=== PATIENT | male | born 1945 | race Caucasian/White ===

== ENCOUNTER 2017-02-03 09:10 | Outpatient (CLI) | payer MEDICARE, BC ==
[2017-02-03 09:40] LABS: ALT (SGPT) 26 U/L (8-55); AST (SGOT) 20 U/L (5-34); Albumin 4.3 g/dL (3.4-4.8); Alkaline Phosphatase 84 U/L (40-150); Anion Gap 12 mmol/L (10-20); BUN (Urea Nitrogen) 21 mg/dL (8.4-25.7); Bilirubin, Total 0.9 mg/dL (0.2-1.2); Calc. Creatinine Clearance 0 mL/min (70-130); Calcium 9.4 mg/dL (7.8-10.44); Carbon Dioxide 26 mmol/L (23-31); Cardiac Risk 2.2 (Less than 4.5); Chloride 108 mmol/L (98-107); Cholesterol 114 mg/dl (< 200 Desired); Estimated GFR-MDRD 88; Globulin 2.4 g/dL (2.4-3.5); Glucose 98 mg/dL (83-110); HDL Cholesterol 52 mg/dL (>60 Neg Risk); LDL Cholesterol, Calculated 53 mg/dL; Potassium 3.8 mmol/L (3.5-5.1); Protein, Total 6.7 g/dL (5.8-8.1); Sodium 142 mmol/L (136-145); Triglycerides 47 mg/dL (Less than 150)
== END 2017-02-03 09:11 | disposition home or self-care (01) ==
LOC: BURLAB 09:10
PROVIDERS: ATTEND Internal Medicine Cardiovascular Disease
DX: E78.00 Pure hypercholesterolemia, unspecified (principal); I25.10 Atherosclerotic heart disease of native coronary artery without angina pectoris
CPT/HCPCS: 36415; 80053; 80061

== ENCOUNTER 2019-02-14 09:16 | Emergency (ER) | payer MEDICARE, BC ==
[~2019-02-14 09:16] MED LIST: Iopamidol 370 76% 100 ML VIAL ONE
[2019-02-14] MEDS ORDERED: Glycopyrrolate 0.4 MG/ 2 ML VIAL ONE (09:53)
[2019-02-14] MEDS ORDERED: Famotidine In NaCl 20 mg/50 ml Premix Bag ONE (09:53)
[2019-02-14] MEDS ORDERED: Ondansetron ODT 4 MG TAB ONE ×2 (09:53→10:19)
[2019-02-14 09:59] LABS: #Basophils 0.1 thou/uL (0.0-0.2); #Monocytes 0.7 thou/uL (0.11-0.59); #Neutrophils 13.2 thou/uL (1.40-6.50); %Basophils 0.5 % (0.0-1.0); %Eosinophils 0.1 % (0.0-10.0); %Lymphocytes 6.6 % (21.0-51.0); %Monocytes 4.8 % (0.0-10.0); Hemoglobin 15.2 g/dL (14.0-18.0); Mean Corpuscular HGB CONC 31.6 g/dL (32.0-36.0); Mean Corpuscular Volume 91.6 fL (78.0-98.0); Mean Platelet Volume 7.1 fL (7.4-10.4); Platelet Count 232 thou/uL (130-400); RBC Distribution Width 15.2 % (11.5-14.5); Red Blood Cell (RBC) Count 5.24 mill/uL (4.70-6.10)
[2019-02-14 10:15] LABS: ALT (SGPT) 21 U/L (8-55); AST (SGOT) 22 U/L (5-34); Albumin 4.4 g/dL (3.4-4.8); Alkaline Phosphatase 86 U/L (40-150); Anion Gap 16 mmol/L (10-20); BUN (Urea Nitrogen) 19 mg/dL (8.4-25.7); Calc. Creatinine Clearance 0 mL/min (70-130); Calcium 9.7 mg/dL (7.8-10.44); Carbon Dioxide 22 mmol/L (23-31); Chloride 108 mmol/L (98-107); Estimated GFR-MDRD 78; Globulin 2.7 g/dL (2.4-3.5); Glucose 121 mg/dL (83-110); Potassium 3.4 mmol/L (3.5-5.1); Protein, Total 7.1 g/dL (5.8-8.1); Sodium 143 mmol/L (136-145)
[2019-02-14] MEDS ORDERED: Fentanyl 100 MCG/2 ML VIAL ONE (10:19)
[2019-02-14 10:36] LABS: Bilirubin Negative (Negative); Blood, Urine Moderate (Negative); Clarity Clear (Clear); Glucose, Urine (Dipstick) Negative (Negative); Leukocyte Negative (Negative); Nitrite Negative (Negative); Protein, Urine (Dipstick) 30 mg/dL (Neg-Trace); Urobilinogen 0.2 mg/dL (Less than 2)
[2019-02-14 10:42] LABS: Bacteria/HPF None Seen HPF (None Seen); Squamous Epithelial 0-3 HPF (0-3); WBC/HPF 0-3 HPF (0-3)
[2019-02-14] MEDS ORDERED: Ketorolac Tromethamine 30 MG/ML VIAL ONE (10:51)
--- NOTE | 2019-02-14 12:57 | CT ---
CT ABDOMEN AND PELVIS WITH CONTRAST: DATE: 02/14/2019. FINDINGS: Spiral CT of the abdomen and pelvis was done for evaluation of left lower quadrant pain. Axial slice s were acquired followed by sagittal and coronal reconstructions. The major finding on this study is a large 8-9 mm proximal left ureteral stone near the left UPJ. It is causing moderate left hydronephrosis. There is considerable stranding around this left kidney. Elsewhere, the lung bases were clear. The liver, spleen, pancreas, gallbladder, adrenal glands, righ t kidney, and aorta showed no acute findings. Numerous large renal cysts are seen bilaterally. Ther e is no aortic aneurysm. The bowel shows no inflammatory change around it or dilation. No free air or free fluid was present. Diverticulosis is present without findings of diverticulitis. CT of the pelvis was remarkable for a very large prostate gland measuring 6.3 cm in transverse diamet er. IMPRESSION: 1. An 8 to 9 mm proximal left ureteral calculus causing moderate hydronephrosis. 2. Diverticulosis without diverticulitis. 3. Prostatic enlargement. POS: HOME
== END 2019-02-14 11:41 | disposition short-term general hospital (02) ==
LOC: BURERS 09:16
DX: N13.2 Hydronephrosis with renal and ureteral calculous obstruction (principal); R11.2 Nausea with vomiting, unspecified; E78.5 Hyperlipidemia, unspecified; I10 Essential (primary) hypertension
CPT/HCPCS: 36415; 74177; 80053; 81003; 81015; 83605; 85025; 94760; 96365; 96375; J1885; J3010; Q0162; Q9967

== ENCOUNTER 2019-03-06 10:27 | Outpatient (CLI) | payer MEDICARE, BC ==
[2019-03-06 17:28] LABS: Anion Gap 13 mmol/L (10-20); BUN (Urea Nitrogen) 24 mg/dL (8.4-25.7); Calc. Creatinine Clearance 0 mL/min (70-130); Calcium 9.2 mg/dL (7.8-10.44); Carbon Dioxide 24 mmol/L (23-31); Chloride 107 mmol/L (98-107); Estimated GFR-MDRD 37; Glucose 118 mg/dL (83-110); Potassium 3.8 mmol/L (3.5-5.1); Sodium 140 mmol/L (136-145)
== END 2019-03-06 10:28 | disposition home or self-care (01) ==
LOC: BURRAD 10:27
PROVIDERS: ATTEND Internal Medicine Cardiovascular Disease
DX: I25.10 Atherosclerotic heart disease of native coronary artery without angina pectoris (principal); I10 Essential (primary) hypertension
CPT/HCPCS: 36415; 80048

== ENCOUNTER 2020-07-09 14:43 | Outpatient (CLI) | payer MEDICARE, BC ==
--- NOTE | 2020-07-09 17:56 | RAD ---
LUMBAR SPINE FOUR VIEWS WITH BENDIN07/09/20 AP and multiple lateral views were obtained in neutral, flexion, and extension positions. Diffuse sev ere arthritic changes are present throughout this patient's spine with numerous osteophytes and degen erative discs and disc space narrowing at all lumbar levels. There is no dramatic spondylolisthesis p resent. There is about 3 mm of spondylolisthesis of L4 on L5 in the standing position and it widens b y only about 1 mm with flexion and is a little less with extension. Thus there is only about 1 mm of movement there between flexion, neutral and extension, which is not excessive. The SI joints are symm etrical. IMPRESSION: Severe degenerative changes with multilevel degenerative disc disease. Minimal anterior translation o f L4 on L5 that only moves by about 1 mm between flexion, extension, and neutral positioning. POS: HOME
== END 2020-07-09 14:44 | disposition home or self-care (01) ==
LOC: BURRAD 14:43
PROVIDERS: ATTEND Internal Medicine Cardiovascular Disease
DX: M43.16 Spondylolisthesis, lumbar region (principal); I25.10 Atherosclerotic heart disease of native coronary artery without angina pectoris; M47.816 Spondylosis without myelopathy or radiculopathy, lumbar region; M51.36 Other intervertebral disc degeneration, lumbar region
CPT/HCPCS: 72120

== ENCOUNTER 2022-10-28 11:02 | Outpatient (CLI) | payer MEDICARE, BC ==
[2022-10-28 11:23] LABS: #Basophils 0.1 thou/uL (0.0-0.2); #Eosinphils 0.2 thou/uL (0.0-0.7); #Lymphocytes 1.8 thou/uL (1.20-3.40); #Monocytes 0.7 thou/uL (0.11-0.59); #Neutrophils 5.2 thou/uL (1.40-6.50); %Basophils 1.5 % (0.0-1.0); %Eosinophils 2.6 % (0.0-10.0); %Monocytes 8.5 % (0.0-10.0); %Neutrophils 65.5 % (42.0-75.0); Hemoglobin 13.6 g/dL (14.0-18.0); Mean Corpuscular HGB CONC 31.8 g/dL (32.0-36.0); Mean Corpuscular Hemoglobin 31.8 pg (27.0-31.0); Mean Platelet Volume 7.7 fL (7.4-10.4); Platelet Count 236 10x3/uL (130-400); RBC Distribution Width 13.3 % (11.5-14.5); Red Blood Cell (RBC) Count 4.26 mill/uL (4.70-6.10)
[2022-10-28 11:55] LABS: ALT (SGPT) 22 U/L (8-55); AST (SGOT) 18 U/L (5-34); Albumin 4.1 g/dL (3.4-4.8); Alkaline Phosphatase 71 U/L (40-110); Anion Gap 11 mmol/L (10-20); BUN (Urea Nitrogen) 25 mg/dL (8.4-25.7); Bilirubin, Total 0.5 mg/dL (0.2-1.2); Calc. Creatinine Clearance 0 mL/min (70-130); Calcium 9.4 mg/dL (7.8-10.44); Carbon Dioxide 29 mmol/L (23-31); Cardiac Risk 2.7 (Less than 4.5); Chloride 106 mmol/L (98-107); Cholesterol 119 mg/dl (< 200 Desired); Estimated GFR 80; Globulin 1.8 g/dL (2.4-3.5); Glucose 112 mg/dL (83-110); HDL Cholesterol 44 mg/dL (>60 Neg Risk); LDL Cholesterol, Calculated 61 mg/dL; Potassium 4.4 mmol/L (3.5-5.1); Protein, Total 5.9 g/dL (5.8-8.1); Sodium 142 mmol/L (136-145); Triglycerides 68 mg/dL (Less than 150)
[2022-10-28 12:15] LABS: Thyroid Stimulating Hormone 0.9076 uIU/mL (0.35-4.94)
[2022-10-28 17:35] LABS: PSA-Asymptomatic (SCREENING) 2.8 ng/mL (0-4.0)
== END 2022-10-28 11:03 | disposition home or self-care (01) ==
LOC: BUREKG 11:02
PROVIDERS: ATTEND Family Medicine
DX: Z01.818 Encounter for other preprocedural examination (principal); Z12.5 Encounter for screening for malignant neoplasm of prostate; E78.5 Hyperlipidemia, unspecified; I10 Essential (primary) hypertension
CPT/HCPCS: 36415; 71046; 80053; 80061; 84443; 85025; 93005; 93010; G0103

== ENCOUNTER 2023-11-30 13:56 | Outpatient (CLI) | payer MEDICARE, BC | END 2023-11-30 13:57 | disposition home or self-care (01) | LOC: BURRAD 13:56 | PROVIDERS: ATTEND Nurse Practitioner Family | DX: M25.522 Pain in left elbow (principal); M19.022 Primary osteoarthritis, left elbow ==